=== PATIENT | male | born 1995 | race American Indian/Alaskan Native ===

== ENCOUNTER 2017-12-21 15:59 | Emergency (ER) | payer SELFPAY ==
[2017-12-21 16:21] VITALS: BP 140/94
[2017-12-21] MEDS ORDERED: LIDOCAINE VISCOUS 2% PO ONE (17:39)
[2017-12-21] MEDS ORDERED: ALUM-MAG HYDROX-SIMETH 200-200-20MG/5ML PO ONE (17:39)
--- NOTE | 2017-12-21 17:40 | Emergency Department Report ---
ED Chest Pain HPI - General Chief Complaint: Chest Pain Stated Complaint: CHEST PAIN Time Seen by Provider: 12/21/17 17:35 Source: patient Mode of arrival: Ambulatory Limitations: No Limitations - History of Present Illness MD Complaint: chest pain -: Gradual, days(s) (9) Onset: during rest, during exertion, after eating Pain Location: substernal, epigastric Severity: mild Quality: other (BURNING) Consistency: intermittent Improves With: nothing Worsens With: nothing re: denies: nausea, vomting, diaphoresis, dyspnea, sense of impending doom Other Symptoms: other (OBESE). denies: cough, fever, syncope, rash, acid taste in mouth, leg swelling, palpitations, burping Treatments Prior to Arrival: none Aspirin use within the Past 7 Days: (0) No - Related Data On Oral Contraceptives: No Previous Rx's Medication Instructions Recorded Last Taken Type Famotidine [Pepcid] 20 mg PO DAILY #30 tablet 12/21/17 Unknown Rx Allergies Allergy/AdvReac Type Severity Reaction Status Date / Time No Known Allergies Allergy Unverified 12/21/17 16:21 Heart Score - HEART Score History: Slightly suspicious EKG: Normal Age: < 45 Risk factors: No known risk factors Troponin: < normal limit HEART Score: 0 ED Review of Systems ROS: Stated complaint: CHEST PAIN Other details as noted in HPI Comment: All other systems reviewed and negative Constitutional: denies: chills, fever Eyes: denies: eye pain ENT: denies: ear pain, throat pain Respiratory: denies: cough, orthopnea, shortness of breath, SOB with exertion, SOB at rest Cardiovascular: chest pain (BURNING P FATTY FOODS). denies: palpitations, dyspnea on exertion, orthopnea Endocrine: denies: excessive sweating, flushing, intolerance to cold, intolerance to heat Gastrointestinal: denies: abdominal pain, nausea, vomiting Genitourinary: denies: urgency, dysuria Musculoskeletal: denies: back pain Skin: denies: rash, lesions Neurological: denies: headache, weakness Psychiatric: denies: anxiety, depression Hematological/Lymphatic: denies: easy bleeding ED Past Medical Hx - Past Medical History Previous Medical History?: No - Surgical History Past Surgical History?: No Additional Surgical History: left femur - Family History Family history: no significant - Social History Smoking Status: Current Every Day Smoker Substance Use Type: Alcohol, Marijuana - Medications Home Medications: Home Medications Medication Instructions Recorded Confirmed Last Taken Type Famotidine [Pepcid] 20 mg PO DAILY #30 tablet 12/21/17 Unknown Rx ED Physical Exam - General Limitations: No Limitations General appearance: alert - Head Head exam: Present: atraumatic - Eye Eye exam: Present: normal appearance - ENT ENT exam: Present: mucous membranes moist - Neck Neck exam: Present: normal inspection. Absent: tenderness, meningismus - Respiratory Respiratory exam: Present: normal lung sounds bilaterally. Absent: respiratory distress, rhonchi - Cardiovascular Cardiovascular Exam: Present: regular rate, normal rhythm - GI/Abdominal GI/Abdominal exam: Present: soft, normal bowel sounds. Absent: distended, tenderness, guarding, rebound, rigid - Rectal Rectal exam: Present: deferred - Extremities Exam Extremities exam: Present: normal inspection. Absent: full ROM, tenderness - Back Exam Back exam: Present: normal inspection, full ROM. Absent: tenderness, CVA tenderness (R) - Neurological Exam Neurological exam: Present: alert, oriented X3, normal gait, reflexes normal - Psychiatric Psychiatric exam: Present: normal affect, normal mood - Skin Skin exam: Present: warm, dry, intact, normal color. Absent: rash ED Course Vital Signs 12/21/17 16:18 Temperature 98.1 F Pulse Rate 97 H Respiratory 20 Rate Blood Pressure 140/94 O2 Sat by Pulse 99 Oximetry ED Medical Decision Making - EKG Data -: EKG Interpreted by Ca EKG shows normal: sinus rhythm Rate: normal - EKG Data Interpretation: no acute changes - Radiology Data Radiology results: report reviewed, image reviewed - Medical Decision Making XRAY N 12 LEAD N PAIN RELIEVED BY GI COCKTAIL - Differential Diagnosis PLEURITIC CP V GERD Critical care attestation.: If time is entered above; I have spent that time in minutes in the direct care of this critically ill patient, excluding procedure time. ED Disposition Clinical Impression: Non-cardiac chest pain, GERD (gastroesophageal reflux disease) Disposition: TO HOME OR SELFCARE Is pt being admited?: No Does the pt Need Aspirin: No Condition: Stable Instructions: Chest Pain (ED), Gastroesophageal Reflux Disease (ED) Additional Instructions: ACTIVITY TOLERATED BLAND DIET FOR DAY HYDRATE WELL WITH WATER AVOID SPICY AND FATTY FOODS FOLLOW UP PCP IF PERSISTS- SEE REFERRAL GIVEN HERE. Prescriptions: Famotidine [Pepcid] 20 mg PO DAILY #30 tablet Referrals: JUSTO ONTIVEROS MD [Referring] - 3-5 Days Time of Disposition: 18:29
[2017-12-21] MEDS ORDERED: BENTYL PO ONE (18:00)
--- NOTE | 2017-12-21 18:18 | XRay Report ---
FINAL REPORT EXAM: XR CHEST ROUTINE 2V HISTORY: CP TECHNIQUE: Frontal and lateral chest x-ray. PRIORS: None. FINDINGS: Cardiac and mediastinal silhouette within normal limits. Lungs are normally expanded and grossly clear. No apparent pleural effusion or pneumothorax. Bony thorax grossly unremarkable. IMPRESSION: 1. No acute findings.
== END 2017-12-21 18:45 | disposition home or self-care (01) ==
LOC: ED 15:59
DX: R07.89 Other chest pain (principal); K21.9 Gastro-esophageal reflux disease without esophagitis; F17.200 Nicotine dependence, unspecified, uncomplicated; F12.10 Cannabis abuse, uncomplicated
CPT/HCPCS: 71046; 93005; 93010

== ENCOUNTER 2018-07-02 19:07 | Emergency (ER) | payer OTHER ==
--- NOTE | 2018-07-02 20:23 | Emergency Department Report ---
Blank Doc - Documentation Documentation: 22 y o male presents to ED cc of right sided flank pain x 2 weeks denies dysuria ua acc eval
[2018-07-02 20:55] LABS: Bilirubin,Urine NEG (Negative); Blood,Urine NEG (Negative); Color,Urine Straw (Yellow); Mucus,Urine FEW /HPF; Protein,Urine <15 mg/dL mg/dL (Negative); WBC,Urine < 1.0 /HPF (0.0-6.0)
[2018-07-02 21:06] LABS: Alanine Aminotransferase 11 units/L (7-56); Albumin 4.2 g/dL (3.9-5); BUN/Creatinine Ratio 11; Blood Urea Nitrogen 9 mg/dL (9-20); Hemolysis Index 6
[2018-07-02 21:12] LABS: Basophils # (Auto) 0.1 K/mm3 (0.0-0.1); Eosinophils # (Auto) 0.2 K/mm3 (0.0-0.4); Eosinophils % (Auto) 2.9 % (0.0-4.3); Hemoglobin 15.2 gm/dl (11.8-15.2); Lymphocytes # (Auto) 2.5 K/mm3 (1.2-5.4); Lymphocytes % (Auto) 35.8 % (13.4-35.0); Mean Corpuscular HGB Conc 35 % (32-34); Mean Corpuscular Volume 85 fl (84-94); Monocytes # (Auto) 0.4 K/mm3 (0.0-0.8); Monocytes % (Auto) 5.6 % (0.0-7.3); Platelet Count 229 K/mm3 (140-440); Red Cell Distribution Width 13.3 % (13.2-15.2)
[2018-07-02 21:24] LABS: Basophils % (Auto) 0.7 % (0.0-1.8)
[2018-07-02] MEDS ORDERED: TORADOL IV ONE (23:26)
[2018-07-02] MEDS ORDERED: SUBLIMAZE IV ONE (23:26)
[2018-07-02] MEDS ORDERED: NACL 0.9% 1000 ML 2,000 ML IV ONE (23:26)
[2018-07-02] MEDS ORDERED: HumuLIN R IV ONE (23:26)
--- NOTE | 2018-07-02 23:27 | Emergency Department Report ---
ED General Adult HPI - General Chief complaint: Abdominal Pain Stated complaint: DIZZY/RT SIDE ABD PAIN/NAUSEA Time Seen by Provider: 07/02/18 20:21 Source: patient, family, RN notes reviewed, old records reviewed Mode of arrival: Ambulatory Limitations: No Limitations - History of Present Illness Initial comments: This is a 22-year-old gentleman. The patient is not known to this provider previously. He denies having a primary care doctor, and he denies chronic medical conditions. The patient reports she does not take any prescription medications. The patient presents to the emergency room today with complaints of nontraumatic right lower back pain, intermittent right flank and right lower quadrant pain intermittently for 2 weeks. The pain is achy, decreases when he takes a shower, and increases with movement, palpation and position. The patient denies nausea and vomiting. He denies testicular pain. He denies irritative, obstructive urinary symptoms. He denies DVT, pulmonary embolus risk factors. He also describes dizziness. This is intermittent sensation for 2 weeks. He describes as a sensation of lightheadedness. However, he has not passed out or lost consciousness. He is not currently experiencing these symptoms at this time. -: Gradual Location: back, abdomen Radiation: abdomen Severity scale (0 -10): 6 Quality: aching Consistency: intermittent Improves with: other Worsens with: other - Related Data Previous Rx's Medication Instructions Recorded Last Taken Type Famotidine [Pepcid] 20 mg PO DAILY #30 tablet 12/21/17 Unknown Rx amLODIPine [Norvasc] 5 mg PO DAILY #30 tab 03/12/18 Unknown Rx Acetaminophen [Tylenol Arthritis] 650 mg PO Q6HR PRN #30 tablet.er 07/03/18 Unknown Rx Ibuprofen [Motrin] 600 mg PO Q8H PRN #30 tablet 07/03/18 Unknown Rx Ondansetron [Zofran Odt] 4 mg PO Q8HR PRN #20 tab.rapdis 07/03/18 Unknown Rx Allergies Allergy/AdvReac Type Severity Reaction Status Date / Time No Known Allergies Allergy Unverified 12/21/17 16:21 ED Review of Systems ROS: Stated complaint: DIZZY/RT SIDE ABD PAIN/NAUSEA Other details as noted in HPI Constitutional: denies: fever Eyes: denies: eye discharge ENT: denies: epistaxis Respiratory: denies: cough Cardiovascular: denies: chest pain Gastrointestinal: abdominal pain. denies: nausea, vomiting Genitourinary: denies: urgency, dysuria, testicular pain Musculoskeletal: back pain Skin: denies: lesions Neurological: denies: weakness Psychiatric: denies: anxiety, depression ED Past Medical Hx - Past Medical History Previous Medical History?: Yes Hx Hypertension: Yes Hx Diabetes: Yes - Surgical History Past Surgical History?: Yes Additional Surgical History: left femur - Social History Smoking Status: Never Smoker Substance Use Type: None - Medications Home Medications: Home Medications Medication Instructions Recorded Confirmed Last Taken Type Famotidine [Pepcid] 20 mg PO DAILY #30 tablet 12/21/17 Unknown Rx amLODIPine [Norvasc] 5 mg PO DAILY #30 tab 03/12/18 Unknown Rx Acetaminophen [Tylenol Arthritis] 650 mg PO Q6HR PRN #30 tablet.er 07/03/18 Unknown Rx Ibuprofen [Motrin] 600 mg PO Q8H PRN #30 tablet 07/03/18 Unknown Rx Ondansetron [Zofran Odt] 4 mg PO Q8HR PRN #20 tab.rapdis 07/03/18 Unknown Rx ED Physical Exam - General Limitations: No Limitations General appearance: alert, in no apparent distress - Head Head exam: Present: atraumatic, normocephalic - Eye Eye exam: Present: normal appearance, EOMI. Absent: nystagmus - ENT ENT exam: Present: normal exam, normal orophraynx, mucous membranes moist, nor mal external ear exam - Neck Neck exam: Present: normal inspection, full ROM. Absent: tenderness, meningismus - Respiratory Respiratory exam: Present: normal lung sounds bilaterally. Absent: respiratory distress - Cardiovascular Cardiovascular Exam: Present: regular rate, normal rhythm, normal heart sounds. Absent: bradycardia, tachycardia, irregular rhythm, systolic murmur, diastolic murmur, rubs, gallop - GI/Abdominal GI/Abdominal exam: Present: soft, tenderness, other (there is right lower quadrant tenderness. There is no rebound, guarding or peritoneal signs.). Absent: distended, guarding, rebound, rigid, pulsatile mass - Rectal Rectal exam: Present: deferred - exam: Present: normal inspection, other (there is no testicular tenderness. There is normal testicular lie bilaterally. There is normal cremasteric reflex bilaterally.). Absent: testicular tenderness External exam: Present: normal external exam, other (chaperoned by ER vendor management consultant Bee Barber) - Extremities Exam Extremities exam: Present: normal inspection, full ROM, other (2+ pulses noted in the bilateral upper, lower extremities. Compartments soft. No long bony tenderness. The pelvis is stable.). Absent: pedal edema, joint swelling, calf tenderness - Back Exam Back exam: Present: normal inspection, full ROM. Absent: tenderness, CVA tenderness (R), paraspinal tenderness, vertebral tenderness - Neurological Exam Neurological exam: Present: alert, oriented X3, normal gait, other (Extraocular movements intact. Tongue midline. No facial droop. Facial sensation intact to light touch in the V1, V2, V3 distribution bilaterally. 5 and 5 strength in 4 extremities.. Sensation is intact to light touch in 4 extremities.). Absent: motor sensory deficit - Psychiatric Psychiatric exam: Present: normal affect, normal mood - Skin Skin exam: Present: warm, dry, intact, normal color. Absent: rash ED Course Vital Signs 07/02/18 07/02/18 07/02/18 19:25 22:48 23:40 Temperature 98.5 F 98.2 F Pulse Rate 89 69 Respiratory 18 18 15 Rate Blood Pressure 149/87 Blood Pressure 164/94 [Left] O2 Sat by Pulse 99 100 Oximetry 07/02/18 07/03/18 07/03/18 23:45 00:10 00:15 Temperature Pulse Rate Respiratory 15 16 16 Rate Blood Pressure Blood Pressure [Left] O2 Sat by Pulse Oximetry 07/03/18 01:46 Temperature Pulse Rate 74 Respiratory 16 Rate Blood Pressure Blood Pressure 164/104 [Left] O2 Sat by Pulse 100 Oximetry - Reevaluation(s) Reevaluation #1: 07/03/18 02:02 Patient reports that he feels improved. He is playing on a cellular phone currently. Patient was counseled to attempt diet and lifestyle modifications to improve elevated blood pressure, and hyperglycemia. 07/03/18 02:06 ED Medical Decision Making - Lab Data Result diagrams: 07/02/18 20:36 07/02/18 20:36 Vital Signs 07/02/18 07/02/18 07/02/18 19:25 22:48 23:40 Temperature 98.5 F 98.2 F Pulse Rate 89 69 Respiratory 18 18 15 Rate Blood Pressure 149/87 Blood Pressure 164/94 [Left] O2 Sat by Pulse 99 100 Oximetry 07/02/18 23:45 Temperature Pulse Rate Respiratory 15 Rate Blood Pressure Blood Pressure [Left] O2 Sat by Pulse Oximetry Lab Results 07/02/18 07/02/18 07/02/18 Range/Units 20:34 20:36 20:36 WBC 7.0 (4.5-11.0) K/mm3 RBC 5.20 H (3.65-5.03) M/mm3 Hgb 15.2 (11.8-15.2) gm/dl Hct 44.0 (35.5-45.6) % MCV 85 (84-94) fl MCH 29 (28-32) pg MCHC 35 H (32-34) % RDW 13.3 (13.2-15.2) % Plt Count 229 (140-440) K/mm3 Lymph % (Auto) 35.8 H (13.4-35.0) % [place] % (Auto) 5.6 (0.0-7.3) % Eos % (Auto) 2.9 (0.0-4.3) % Baso % (Auto) 0.7 (0.0-1.8) % Lymph # 2.5 (1.2-5.4) K/mm3 Gentry # 0.4 (0.0-0.8) K/mm3 Eos # 0.2 (0.0-0.4) K/mm3 Baso # 0.1 (0.0-0.1) K/mm3 Seg Neutrophils % 55.0 (40.0-70.0) % Seg Neutrophils # 3.8 (1.8-7.7) K/mm3 Sodium 138 (137-145) mmol/L Potassium 4.0 (3.6-5.0) mmol/L Chloride 99.9 (98-107) mmol/L Carbon Dioxide 27 (22-30) mmol/L Anion Gap 15 mmol/L BUN 9 (9-20) mg/dL Creatinine 0.8 (0.8-1.5) mg/dL Estimated GFR > 60 ml/min BUN/Creatinine Ratio 11 % Glucose 332 H (75-100) mg/dL POC Glucose 326 H (70-105) Calcium 9.0 (8.4-10.2) mg/dL Total Bilirubin 0.70 (0.1-1.2) mg/dL AST 11 (5-40) units/L ALT 11 (7-56) units/L Alkaline Phosphatase 80 (35-129) units/L Total Protein 7.0 (6.3-8.2) g/dL Albumin 4.2 (3.9-5) g/dL Albumin/Globulin Ratio 1.5 % Urine Color (Yellow) Urine Turbidity (Clear) Urine pH (5.0-7.0) Ur Specific [place] (1.003-1.030) Urine Protein (Negative) mg/dL Urine Glucose (UA) (Negative) mg/dL Urine Ketones (Negative) mg/dL Urine Blood (Negative) Urine Nitrite (Negative) Urine Bilirubin (Negative) Urine Urobilinogen (<2.0) mg/dL Ur Leukocyte Esterase (Negative) Urine WBC (Auto) (0.0-6.0) /HPF Urine RBC (Auto) (0.0-6.0) /HPF U Epithel Cells (Auto) (0-13.0) /HPF Urine Mucus /HPF 07/02/18 Range/Units 20:38 WBC (4.5-11.0) K/mm3 RBC (3.65-5.03) M/mm3 Hgb (11.8-15.2) gm/dl Hct (35.5-45.6) % MCV (84-94) fl MCH (28-32) pg MCHC (32-34) % RDW (13.2-15.2) % Plt Count (140-440) K/mm3 Lymph % (Auto) (13.4-35.0) % Gentry % (Auto) (0.0-7.3) % Eos % (Auto) (0.0-4.3) % Baso % (Auto) (0.0-1.8) % Lymph # (1.2-5.4) K/mm3 [place]entry # (0.0-0.8) K/mm3 Eos # (0.0-0.4) K/mm3 Baso # (0.0-0.1) K/mm3 Seg Neutrophils % (40.0-70.0) % Seg Neutrophils # (1.8-7.7) K/mm3 Sodium (137-145) mmol/L Potassium (3.6-5.0) mmol/L Chloride (98-107) mmol/L Carbon Dioxide (22-30) mmol/L Anion Gap mmol/L BUN (9-20) mg/dL Creatinine (0.8-1.5) mg/dL Estimated GFR ml/min BUN/Creatinine Ratio % Glucose (75-100) mg/dL POC Glucose (70-105) Calcium (8.4-10.2) mg/dL Total Bilirubin (0.1-1.2) mg/dL AST (5-40) units/L ALT (7-56) units/L Alkaline Phosphatase (35-129) units/L Total Protein (6.3-8.2) g/dL Albumin (3.9-5) g/dL Albumin/Globulin Ratio % Urine Color Straw (Yellow) Urine Turbidity Clear (Clear) Urine pH 6.0 (5.0-7.0) Ur Specific [place] 1.030 (1.003-1.030) Urine Protein <15 mg/dl (Negative) mg/dL Urine Glucose (UA) >=500 (Negative) mg/dL Urine Ketones Neg (Negative) mg/dL Urine Blood Neg (Negative) Urine Nitrite Neg (Negative) Urine Bilirubin Neg (Negative) Urine Urobilinogen 2.0 (<2.0) mg/dL Ur Leukocyte Esterase Neg (Negative) Urine WBC (Auto) < 1.0 (0.0-6.0) /HPF Urine RBC (Auto) 4.0 (0.0-6.0) /HPF U Epithel Cells (Auto) < 1.0 (0-13.0) /HPF Urine Mucus Few /HPF - EKG Data -: EKG Interpreted by [place] EKG shows normal: sinus rhythm Rate: normal - EKG Data When compared to previous EKG there are: no significant change 07/03/18 01:57 EKG showed sinus, 63 bpm, normal axis, normal intervals, not having chest pain, not consistent with ST elevation myocardial infarction. This EKG today appears to be unchanged when compared to prior EKG from 05/13/2017 - Radiology Data Radiology results: report reviewed, image reviewed Print Report Referring Physician: PEDRO PABLO GOMEZ Patient Name: CHANDNI REA Date of : 1995 Sex: Male Report Date: 2018-07-03 Report Status: Finalized Findings [facility] [address] [place] [address] Cat Scan Report Signed Patient: CHANDNI REA MR#: [id number] : 1995 Acct:[id number] Age/Sex: 22 / M ADM Date: 07/02/18 Loc: ED Attending Dr: Ordering Physician: PEDRO PABLO GOMEZ MD Date of Service: 07/03/18 Procedure(s): CT abdomen pelvis wo/w con Accession Number(s): [id number] cc: PEDRO PABLO GOMEZ MD PROCEDURE: CT ABDOMEN PELVIS WO/W CON TECHNIQUE: Computerized axial tomography of the abdomen and pelvis was performed before and after the IV injection of 100 mL iodinated nonionic contrast. Automated exposure control, adjustment of mA and/or kV according to patient size, or iterative reconstruction dose optimization techniques were utilized. HISTORY: right sided flank rlq back pain COMPARISONS: None . FINDINGS: Visualized lower thorax: No significant abnormality. Liver: Normal size and attenuation. Spleen: Normal size and attenuation. Gallbladder and biliary system: Normal. Pancreas: Normal. Adrenals: Normal. Kidneys: Normal. GI tract: Normal . Lymph nodes and mesentery: Normal. Vasculature: Normal.. Bladder: Normal. Reproductive organs: Normal. Peritoneum: No free fluid. Musculoskeletal structures: No significant abnormality. Other: None . IMPRESSION: There is no evidence of intestinal or urinary tract obstruction. No ileus or enteritis. The appendix is normal. . This document is electronically signed by Bev Santamaria DO., July 03 2018 01:18:33 AM ET Transcribed By: [facility] Dictated By: BEV SANTAMARIA MD Electronically Authenticated By: BEV SANTAMARIA MD Signed Date/Time: 07/03/18 0120 - Medical Decision Making Differential diagnosis, including but not limited to: Appendicitis, renal colic, constipation, inflammatory bowel disease Assessment and plan: 22-year-old gentleman with a primary complaint of abdominal pain, secondary complaint of dizziness. The patient is afebrile with reassuring vital signs, walks with a steady gait, is clinically sober, with the exception of elevated blood pressure, GCS of 15, NIH score of 0, no pulmonary embolus or DVT risk factors, low risk by well's criteria, perc negative Laboratory studies are basically unremarkable with the exception of hyperglycemia, and glucose in the urine. CT scan of the abdomen pelvis appears to be negative for acute disease. Patient was given appropriate pain medication, fluids, and insulin, vital signs appeared to slightly improve, hyperglycemia improved. Patient has been having this complaint for around 2 weeks. No objectively identified emergent condition is present at this time. Patient resting comfortably, in the stretcher, and in no acute distress. The patient will be counseled to follow up in outpatient primary care doctor for his presumed undiagnosed diabetes and hypertension, and to follow up with a primary care doctor or pharm tech for his abdominal pain. Critical care attestation.: If time is entered above; I have spent that time in minutes in the direct care of this critically ill patient, excluding procedure time. ED Disposition Clinical Impression: Abdominal pain, Hyperglycemia, Elevated blood pressure reading Disposition: TO HOME OR SELFCARE Is pt being admited?: No Does the pt Need Aspirin: No Condition: Good Additional Instructions: Take the pain medications as needed/directed. Please take the pain medication as needed/directed. Follow up with a primary care doctor or pharm tech within the next 7-10 days for complaint of abdominal pain. Please note that blood pressure was found to be elevated in the emergency room, and patient may have a formal diagnosis of hypertension/elevated blood pressure. However, this should be checked and followed up by a primary care doctor within the recommended timeframe. Long-term complications of hypertension and elevated blood pressure includes stroke, heart attack, disability, paralysis, loss of quality of life. Patient found to have elevated blood sugar in the emergency room. This may be indicative of undiagnosed diabetes, or may be secondary to patient's recent food consumption. Blood sugar should be rechecked by a primary care doctor within the next month. Please return to the emergency room right away with new pain, worsened pain, migration of pain, projectile vomiting, change in mental status, confusion, inability to tolerate liquid feeds, new, worse and different symptoms. Prescriptions: Ibuprofen [Motrin] 600 mg PO Q8H PRN #30 tablet PRN Reason: Pain Acetaminophen [Tylenol Arthritis] 650 mg PO Q6HR PRN #30 tablet.er PRN Reason: Pain Ondansetron [Zofran Odt] 4 mg PO Q8HR PRN #20 tab.rapdis PRN Reason: Nausea Referrals: LISA VALLEJO MD [Primary Care Provider] - 3-5 Days [facility] [Provider Group] - 3-5 Days [facility] [Provider Group] - 3-5 Days [facility] [Provider Group] - 3-5 Days
--- NOTE | 2018-07-03 01:20 | Cat Scan Report ---
PROCEDURE: CT ABDOMEN PELVIS WO/W CON TECHNIQUE: Computerized axial tomography of the abdomen and pelvis was performed before and after th e IV injection of 100 mL iodinated nonionic contrast. Automated exposure control, adjustment of mA an d/or kV according to patient size, or iterative reconstruction dose optimization techniques were util ized. HISTORY: right sided flank rlq back pain COMPARISONS: None . FINDINGS: Visualized lower thorax: No significant abnormality. Liver: Normal size and attenuation. Spleen: Normal size and attenuation. Gallbladder and biliary system: Normal. Pancreas: Normal. Adrenals: Normal. Kidneys: Normal. GI tract: Normal . Lymph nodes and mesentery: Normal. Vasculature: Normal.. Bladder: Normal. Reproductive organs: Normal. Peritoneum: No free fluid. Musculoskeletal structures: No significant abnormality. Other: None . IMPRESSION: There is no evidence of intestinal or urinary tract obstruction. No ileus or enteritis. The appendix is normal. . This document is electronically signed by Bev Santamaria DO., July 03 2018 01:18:33 AM ET
[2018-07-03 02:40] VITALS: BP 156/80
== END 2018-07-03 02:39 | disposition home or self-care (01) ==
LOC: ED 19:07
DX: R10.31 Right lower quadrant pain (principal); E11.65 Type 2 diabetes mellitus with hyperglycemia; M54.5 Low back pain; I10 Essential (primary) hypertension
CPT/HCPCS: 36415; 74178; 80053; 81001; 82550; 82962; 85025; 93005; 93010; 96361; 96374; 96375; 99284; J1885; J3010; J7030; Q9967; J1815

== ENCOUNTER 2021-06-12 10:14 | Emergency (ER) | payer SELFPAY ==
[2021-06-12 10:28] VITALS: BP 168/104
== END 2021-06-12 18:31 | disposition left against medical advice (07) ==
LOC: ED 10:14
DX: L02.426 Furuncle of left lower limb (principal); Z53.21 Procedure and treatment not carried out due to patient leaving prior to being seen by health care provider

== ENCOUNTER 2021-07-28 08:57 | Emergency (ER) | payer SELFPAY ==
[2021-07-28] MEDS ORDERED: SODIUM CHLORIDE 0.9% 1000 ML 1,000 ML IV ONE (10:04)
[2021-07-28 11:27] LABS: Basophils % (Auto) 0.7 % (0.0-1.8); Eosinophils # (Auto) 0.2 K/mm3 (0.0-0.4); Eosinophils % (Auto) 2.8 % (0.0-4.3); Hematocrit 45.4 % (35.5-45.6); Hemoglobin 15.3 gm/dl (11.8-15.2); Lymphocytes # (Auto) 2.1 K/mm3 (1.2-5.4); Lymphocytes % (Auto) 33.2 % (13.4-35.0); Mean Corpuscular HGB Conc 34 % (32-34); Mean Corpuscular Volume 83 fl (84-94); Monocytes # (Auto) 0.4 K/mm3 (0.0-0.8); Monocytes % (Auto) 6.8 % (0.0-7.3); Platelet Count 249 K/mm3 (140-440); Red Blood Count 5.46 M/mm3 (3.65-5.03); Red Cell Distribution Width 13.8 % (13.2-15.2)
[2021-07-28 11:43] LABS: Alanine Aminotransferase 10 units/L (7-56); Albumin 4.5 g/dL (3.9-5); BUN/Creatinine Ratio 18; Blood Urea Nitrogen 14 mg/dL (9-20); Calcium 9.2 mg/dL (8.4-10.2); Hemolysis Index 80
--- NOTE | 2021-07-28 12:50 | Emergency Department Report ---
HPI - General Chief Complaint: Hyperglycemia Time Seen by Provider: 07/28/21 12:26 - HPI HPI: Room 4 Patient is a 25-year-old male present with chief complaint of right eye pain and blurred vision. Patient states for 2 weeks he has had a constant blurred vision and pain in his right eye. Patient denies any preceding trauma. Patient has history of diabetes diagnosed at age 18 but states he has not taken any insulin for the last 5 years ED Past Medical Hx - Past Medical History Previous Medical History?: Yes Hx Hypertension: Yes Hx Diabetes: Yes - Surgical History Past Surgical History?: Yes Additional Surgical History: left femur - Family History Family history: no significant - Social History Smoking Status: Current Every Day Smoker (1/2 pack/day) Substance Use Type: Alcohol (Occasional), Marijuana - Medications Home Medications: Home Medications Medication Instructions Recorded Confirmed Last Taken Type Famotidine [Pepcid] 20 mg PO DAILY #30 tablet 12/21/17 Unknown Rx amLODIPine [Norvasc] 5 mg PO DAILY #30 tab 03/12/18 Unknown Rx Acetaminophen [Tylenol Arthritis] 650 mg PO Q6HR PRN #30 tablet.er 07/03/18 Unknown Rx Ibuprofen [Motrin] 600 mg PO Q8H PRN #30 tablet 07/03/18 Unknown Rx Ondansetron [Zofran Odt] 4 mg PO Q8HR PRN #20 tab.rapdis 07/03/18 Unknown Rx ED Review of Systems ROS: Stated complaint: CANT SEE OUT RIGHT EYE Other details as noted in HPI Constitutional: no symptoms reported Eyes: eye pain, vision change ENT: denies: ear pain Respiratory: no symptoms reported Cardiovascular: denies: chest pain Endocrine: no symptoms reported Gastrointestinal: denies: abdominal pain Genitourinary: denies: dysuria Musculoskeletal: denies: back pain Neurological: denies: headache Physical Exam - Physical Exam Vital Signs: Vital Signs 07/28/21 09:59 Temperature 98.5 F Pulse Rate 83 Respiratory 20 Rate Blood Pressure 138/95 [Right] O2 Sat by Pulse 99 Oximetry Physical Exam: GENERAL: The patient is well-developed well-nourished male lying on stretcher not appearing to be in acute distress. [] HEENT: Normocephalic. Atraumatic. Extraocular motions are intact. Intermittent strabismus present. Patient has moist mucous membranes. NECK: Supple. Trachea midline CHEST/LUNGS: Clear to auscultation. There is no respiratory distress noted. HEART/CARDIOVASCULAR: Regular. There is no tachycardia. There is no gallop rub or murmur. ABDOMEN: Abdomen is soft, nontender. Patient has normal bowel sounds. There is no abdominal distention. SKIN: There is no rash. There is no edema. There is no diaphoresis. NEURO: The patient is awake, alert, and oriented. The patient is cooperative. The patient has no focal neurologic deficits. The patient has normal speech. Cranial nerves II through XII grossly intact. GCS 15 MUSCULOSKELETAL: There is no evidence of acute injury. ED Course Vital Signs 07/28/21 09:59 Temperature 98.5 F Pulse Rate 83 Respiratory 20 Rate Blood Pressure 138/95 [Right] O2 Sat by Pulse 99 Oximetry - Consultations Consultation #1: 07/28/21 13:44 [facility] transfer called 07/28/21 14:18 Case discussed with [facility] taping foreman Dr. Prince-will accept patient in transfer to ED Case discussed with [facility] ED physician Dr. Dozier-will accept patient in transfer to ED ED Medical Decision Making - Lab Data Result diagrams: 07/28/21 10:30 07/28/21 10:30 Laboratory Tests 07/28/21 07/28/21 07/28/21 10:30 10:30 10:30 WBC 6.2 RBC 5.46 H Hgb 15.3 H Hct 45.4 MCV 83 L MCH 28 MCHC 34 RDW 13.8 Plt Count 249 Lymph % (Auto) 33.2 [place] % (Auto) 6.8 Eos % (Auto) 2.8 Baso % (Auto) 0.7 Lymph # (Auto) 2.1 [place] # (Auto) 0.4 Eos # (Auto) 0.2 Baso # (Auto) 0.0 Seg Neutrophils % 56.5 Seg Neutrophils # 3.5 VBG pH 7.363 Sodium 136 L Potassium 4.9 Chloride 98.0 Carbon Dioxide 27 Anion Gap 16 BUN 14 Creatinine 0.8 Estimated GFR > 60 BUN/Creatinine Ratio 18 Glucose 393 H Calcium 9.2 Total Bilirubin 0.60 AST 14 ALT 10 Alkaline Phosphatase 102 Total Protein 6.9 Albumin 4.5 Albumin/Globulin Ratio 1.9 - Differential Diagnosis Diabetic retinopathy, glaucoma, cataract, Critical care attestation.: If time is entered above; I have spent that time in minutes in the direct care of this critically ill patient, excluding procedure time. ED Disposition Clinical Impression: Blurred vision, right eye Disposition: 51 HOSPICE/MEDICAL FACILITY Is pt being admited?: No Does the pt Need Aspirin: No Condition: Serious Time of Disposition: 14:19 (Awaiting transport)
[2021-07-28 17:25] VITALS: BP 161/96
== END 2021-07-28 18:00 | disposition hospice, inpatient (51) ==
LOC: ED 08:57
DX: H53.8 Other visual disturbances (principal); F17.200 Nicotine dependence, unspecified, uncomplicated; F10.20 Alcohol dependence, uncomplicated; F12.90 Cannabis use, unspecified, uncomplicated; I10 Essential (primary) hypertension; E11.8 Type 2 diabetes mellitus with unspecified complications
CPT/HCPCS: 36415; 80053; 82805; 82962; 85025; 96360; 99285; J7030